=== PATIENT | male | born 1975 | race Caucasian/White ===

== ENCOUNTER 2020-01-01 13:18 | Emergency (ER) | payer OTHER ==
[2020-01-01 13:49] VITALS: BP 139/95; PULSE 81; TEMP 98; BMI 28.4
[2020-01-01] MEDS ORDERED: DIPHTH,PERTUSS(ACELL),TET 0.5 ML DISP.SYRIN IM ONE ×2 (13:51→14:17)
[2020-01-01] MEDS ORDERED: LIDOCAINE HCL 1%, 10 MG/ML (50 mL VIAL) SQ ONE (15:08)
[2020-01-01] MEDS ORDERED: LIDOCAINE HCL/PF 1% SDV 5ML VIAL ONE (15:09)
== END 2020-01-01 16:40 | disposition home or self-care (01) ==
LOC: JERFT 13:18
PROC: 0HQFXZZ Repair Right Hand Skin, External Approach (ICD-10-PCS; principal; 2020-01-01)
PROC: 3E0234Z Introduction of Serum, Toxoid and Vaccine into Muscle, Percutaneous Approach (ICD-10-PCS; 2020-01-01)
DX: S61.210A Laceration without foreign body of right index finger without damage to nail, initial encounter (principal)
CPT/HCPCS: 73140-TC-RT-FY; 90715; 99285-25

== ENCOUNTER 2020-01-08 12:39 | Emergency (ER) | payer OTHER ==
[2020-01-08 12:57] VITALS: BP 125/85; PULSE 85; TEMP 98.1; BMI 28.7
== END 2020-01-08 13:11 | disposition home or self-care (01) ==
LOC: JERFT 12:39
DX: Z48.02 Encounter for removal of sutures (principal)
CPT/HCPCS: 99281-25